=== PATIENT | male | born 1955 | race African-American/Black ===

== ENCOUNTER 2016-04-29 08:02 | Emergency (ER) | payer MEDICAID ==
[~2016-04-29] VITALS: Ht 175.3 cm; Wt 87.0 kg
[~2016-04-29 08:02] MED LIST: ALLO300T2 PO; AMLO10TA80 PO; AMLODIPINE; ASA; ASPI-1035 PO; ATOR20TA65 PO; BENA20TA3 PO; BENAZEPRIL; FAMOTIDINE; GLIP10TA10 PO; GLIP10TA72 PO; LISI10TA5; METF850T2 PO; NORVAC; RANI150T7 PO; SIMVASTATIN; TAMS0.4C31 PO; THIAMINE
[2016-04-29] MEDS ORDERED: IBUPROFEN 800MG TABLET PO ONE (09:15)
[2016-04-29 09:20] VITALS: BP 127/80
== END 2016-04-29 09:52 | disposition home or self-care (01) ==
LOC: ER 08:18
DX: M10.9 Gout, unspecified (principal); E11.9 Type 2 diabetes mellitus without complications; I10 Essential (primary) hypertension; E78.00 Pure hypercholesterolemia, unspecified; M19.90 Unspecified osteoarthritis, unspecified site; F12.10 Cannabis abuse, uncomplicated
CPT/HCPCS: 99283

== ENCOUNTER 2016-06-10 10:51 | Emergency (ER) | payer MEDICAID ==
[~2016-06-10] VITALS: Ht 172.7 cm; Wt 89.0 kg
[2016-06-10] MEDS ORDERED: KETOROLAC 30MG/ML VIAL IM ONE (13:00)
[2016-06-10 13:05] VITALS: BP 142/75
== END 2016-06-10 16:06 | disposition home or self-care (01) ==
LOC: ER 14:52
DX: M10.9 Gout, unspecified (principal); M25.571 Pain in right ankle and joints of right foot; I10 Essential (primary) hypertension; E11.9 Type 2 diabetes mellitus without complications; M19.90 Unspecified osteoarthritis, unspecified site; F12.10 Cannabis abuse, uncomplicated
CPT/HCPCS: 96372; 99283; J1885

== ENCOUNTER 2016-09-18 18:55 | Emergency (ER) | payer MEDICAID ==
[~2016-09-18] VITALS: Ht 172.7 cm; Wt 200.0 kg
[~2016-09-18 18:55] MED LIST changes: -ASPI-1035 PO; +ASPI-1159 PO
[2016-09-18 19:35] VITALS: BP 142/81
== END 2016-09-19 01:21 | disposition left against medical advice (07) ==
LOC: ER 09-19 01:21
DX: R51 Headache (principal); Z53.21 Procedure and treatment not carried out due to patient leaving prior to being seen by health care provider

== ENCOUNTER 2016-09-19 09:29 | Emergency (ER) | payer MEDICAID ==
[~2016-09-19] VITALS: Ht 172.7 cm; Wt 91.0 kg
[2016-09-19] MEDS ORDERED: KETOROLAC 60MG/2ML VIAL IM ONE (10:15)
[2016-09-19 10:59] VITALS: BP 122/70
== END 2016-09-19 11:00 | disposition home or self-care (01) ==
LOC: ER 10:22
DX: R51 Headache (principal); I10 Essential (primary) hypertension; E11.9 Type 2 diabetes mellitus without complications; M10.9 Gout, unspecified; Z79.82 Long term (current) use of aspirin
CPT/HCPCS: 96372; 99283; J1885

== ENCOUNTER 2017-09-08 11:53 | Emergency (ER) | payer MEDICAID ==
[~2017-09-08] VITALS: Ht 172.7 cm; Wt 91.0 kg
[~2017-09-08 11:53] MED LIST changes: +GLIP10TA3 PO; -GLIP10TA72 PO
[2017-09-08] MEDS ORDERED: ASPIRIN 81MG TABLET PO ONE (12:30)
[2017-09-08 12:59] LABS: BASOPHILS % 1.3 % (0.0-2.0); EOSINOPHILS % 3.4 % (0.0-5.0); HEMATOCRIT. 45.3 % (42.0-52.0); HEMOGLOBIN. 15.6 g/dL (14.0-18.0); LYMPHOCYTES % 25.5 % (20.0-50.0); MEAN CORPUSCULAR HEMOGLOBIN 32.3 pg (28.0-32.0); MEAN CORPUSCULAR VOLUME 93.8 fL (80.0-94.0); MEAN PLATELET VOLUME 7.9 fl (7.4-10.4); MONOCYTES % 8.2 % (2.0-8.0); NEUTROPHILS % 61.6 % (40.0-76.0); PLATELET 252 x1000/uL (130-400); RED BLOOD CELL COUNT 4.83 mill/uL (4.7-6.1); RED CELL DISTRIBUTION WIDTH 13.2 % (11.6-14.6)
[2017-09-08 13:06] LABS: CHLORIDE 105 mEq/L (98-107)
[2017-09-08 13:07] LABS: INR 1.1; PROTHROMBIN TIME 11.8 sec (9.4-11.6)
[2017-09-08 13:52] VITALS: BP 139/72
== END 2017-09-08 13:52 | disposition home or self-care (01) ==
LOC: ER 11:53
DX: M79.602 Pain in left arm (principal); E11.9 Type 2 diabetes mellitus without complications; I10 Essential (primary) hypertension; F12.10 Cannabis abuse, uncomplicated
CPT/HCPCS: 36415; 71045; 80053; 83880; 84484; 85025; 85610; 93005; 99285

== ENCOUNTER 2018-02-19 09:26 | Emergency (ER) | payer MEDICAID ==
[~2018-02-19] VITALS: Ht 172.7 cm; Wt 88.0 kg
[~2018-02-19 09:26] MED LIST changes: +BENA20TA10 PO; -BENA20TA3 PO; +METF-415 PO; -METF850T2 PO
[2018-02-19] MEDS ORDERED: VITAMIN B1 (09:59)
[2018-02-19] MEDS ORDERED: FISH OIL (09:59)
[2018-02-19] MEDS ORDERED: ACETAMINOPHEN 325MG TABLET PO ONE (12:15)
[2018-02-19 12:21] VITALS: BP 150/75
== END 2018-02-19 12:21 | disposition home or self-care (01) ==
LOC: ER 09:26
DX: S16.1XXA Strain of muscle, fascia and tendon at neck level, initial encounter (principal); E11.9 Type 2 diabetes mellitus without complications; E78.00 Pure hypercholesterolemia, unspecified; I10 Essential (primary) hypertension; F12.10 Cannabis abuse, uncomplicated; F17.200 Nicotine dependence, unspecified, uncomplicated; Z79.899 Other long term (current) drug therapy; X58.XXXA Exposure to other specified factors, initial encounter; Y93.89 Activity, other specified; Y92.89 Other specified places as the place of occurrence of the external cause; Y99.8 Other external cause status
CPT/HCPCS: 99283

== ENCOUNTER 2018-06-19 07:22 | Emergency (ER) | payer MEDICAID ==
[~2018-06-19] VITALS: Ht 170.2 cm; Wt 89.0 kg
[~2018-06-19 07:22] MED LIST changes: -ALLO300T2 PO; +FISH OIL; -NORVAC; -RANI150T7 PO; +VITAMIN B1
[2018-06-19] MEDS ORDERED: GLUCAGON,HUMAN RECOMBINANT 1MG/VIAL IM ONE (08:45)
[2018-06-19 09:54] VITALS: BP 168/90
== END 2018-06-19 09:58 | disposition home or self-care (01) ==
LOC: ER 07:22
DX: R13.10 Dysphagia, unspecified (principal); E11.9 Type 2 diabetes mellitus without complications; I10 Essential (primary) hypertension; F12.10 Cannabis abuse, uncomplicated; Z79.82 Long term (current) use of aspirin; Z79.899 Other long term (current) drug therapy
CPT/HCPCS: 82962; 96372; 99283; J1610; Z7610

== ENCOUNTER 2018-10-06 10:28 | Emergency (ER) | payer MEDICAID ==
[~2018-10-06] VITALS: Ht 175.3 cm; Wt 93.0 kg
[~2018-10-06 10:28] MED LIST changes: -ASPI-1159 PO; +ASPI-1393 PO
[2018-10-06 10:39] VITALS: BP 150/87
== END 2018-10-06 11:11 | disposition home or self-care (01) ==
LOC: ER 10:28
DX: S10.96XA Insect bite of unspecified part of neck, initial encounter (principal); E11.9 Type 2 diabetes mellitus without complications; I10 Essential (primary) hypertension; W57.XXXA Bitten or stung by nonvenomous insect and other nonvenomous arthropods, initial encounter; Y93.9 Activity, unspecified; Y92.9 Unspecified place or not applicable; Z79.82 Long term (current) use of aspirin
CPT/HCPCS: 99282

== ENCOUNTER 2019-08-15 07:34 | Emergency (ER) | payer MEDICAID ==
[~2019-08-15] VITALS: Ht 172.7 cm; Wt 91.0 kg
[~2019-08-15 07:34] MED LIST changes: -ASPI-1393 PO; +ASPI-1497 PO
[2019-08-15 08:30] LABS: BASOPHILS % 0.9 % (0.0-2.0); EOSINOPHILS % 4.9 % (0.0-5.0); HEMATOCRIT. 44.6 % (42.0-52.0); HEMOGLOBIN. 15.7 g/dL (14.0-18.0); LYMPHOCYTES % 25.8 % (20.0-50.0); MEAN CORPUSCULAR VOLUME 93.5 fL (80.0-94.0); MEAN PLATELET VOLUME 7.9 fl (7.4-10.4); MONOCYTES % 8.2 % (2.0-8.0); NEUTROPHILS % 60.2 % (40.0-76.0); PLATELET 299 x1000/uL (130-400); RED BLOOD CELL COUNT 4.77 mill/uL (4.7-6.1); RED CELL DISTRIBUTION WIDTH 13.2 % (11.6-14.6)
[2019-08-15 08:31] LABS: CHLORIDE 107 mEq/L (98-107)
[2019-08-15 08:37] LABS: CLARITY URINE CLEAR (CLEAR); COLOR URINE YELLOW (YELLOW); KETONES URINE NEGATIVE (NEGATIVE); LEUKOCYTE ESTERASE URINE NEGATIVE (NEGATIVE); NITRITE URINE NEGATIVE (NEGATIVE); OCCULT BLOOD URINE NEGATIVE (NEGATIVE); PH URINE 5.5 (4.5-8.0); PROTEIN URINE NEGATIVE (NEGATIVE); SPECIFIC GRAVITY URINE 1.016 (1.005-1.030); UROBILINOGEN URINE 0.2 E.U./dL (0.2-1.0)
[2019-08-15 09:00] LABS: INR 1.1; PROTHROMBIN TIME 11.1 sec (9.6-11.0)
[2019-08-15] MEDS ORDERED: KETOROLAC 30MG/ML VIAL IV ONE (09:45)
[2019-08-15 10:00] VITALS: BP 131/75
== END 2019-08-15 11:15 | disposition home or self-care (01) ==
LOC: ER 07:34
DX: K57.32 Diverticulitis of large intestine without perforation or abscess without bleeding (principal); E11.65 Type 2 diabetes mellitus with hyperglycemia; I10 Essential (primary) hypertension; E78.00 Pure hypercholesterolemia, unspecified; F12.10 Cannabis abuse, uncomplicated; Z79.84 Long term (current) use of oral hypoglycemic drugs
CPT/HCPCS: 36415; 74176; 80053; 81003; 82962; 83690; 85025; 85610; 96374; 99284; J1885

== ENCOUNTER 2020-03-04 12:16 | Emergency (ER) | payer MEDICAID ==
[~2020-03-04] VITALS: Ht 175.3 cm; Wt 96.0 kg
[2020-03-04] MEDS ORDERED: ONDANSETRON HCL 4MG/2ML INJ IV STA (14:36)
[2020-03-04] MEDS ORDERED: KETOROLAC 30MG/ML VIAL IV STA (14:36)
[2020-03-04 14:39] LABS: CLARITY URINE CLEAR (CLEAR); COLOR URINE YELLOW (YELLOW); KETONES URINE NEGATIVE (NEGATIVE); LEUKOCYTE ESTERASE URINE NEGATIVE (NEGATIVE); NITRITE URINE NEGATIVE (NEGATIVE); OCCULT BLOOD URINE NEGATIVE (NEGATIVE); PH URINE 5.5 (4.5-8.0); PROTEIN URINE NEGATIVE (NEGATIVE); SPECIFIC GRAVITY URINE 1.016 (1.005-1.030); UROBILINOGEN URINE 0.2 E.U./dL (0.2-1.0)
[2020-03-04] MEDS ORDERED: SODIUM CHLORIDE 0.9% 1,000 ML IV ONE (14:45)
[2020-03-04 15:56] LABS: BASOPHILS % 0.6 % (0.0-2.0); EOSINOPHILS % 0.4 % (0.0-5.0); HEMATOCRIT. 47.6 % (42.0-52.0); HEMOGLOBIN. 16.2 g/dL (14.0-18.0); LYMPHOCYTES % 12.3 % (20.0-50.0); MEAN CORPUSCULAR VOLUME 91.2 fL (80.0-94.0); MEAN PLATELET VOLUME 8.4 fl (7.4-10.4); MONOCYTES % 7.9 % (2.0-8.0); NEUTROPHILS % 78.8 % (40.0-76.0); PLATELET 266 x1000/uL (130-400); RED BLOOD CELL COUNT 5.22 mill/uL (4.7-6.1); RED CELL DISTRIBUTION WIDTH 13.1 % (11.6-14.6)
[2020-03-04 15:59] LABS: CHLORIDE 102 mEq/L (98-107)
[2020-03-04 16:04] LABS: PARTIAL THROMBOPLASTIN TIME 27.1 sec (23.4-31.0); PROTHROMBIN TIME 10.9 sec (9.6-11.0)
[2020-03-04 18:30] VITALS: BP 143/79
== END 2020-03-04 18:35 | disposition home or self-care (01) ==
LOC: ER 12:16
DX: K57.92 Diverticulitis of intestine, part unspecified, without perforation or abscess without bleeding (principal); N20.0 Calculus of kidney; E11.9 Type 2 diabetes mellitus without complications; E78.00 Pure hypercholesterolemia, unspecified; I10 Essential (primary) hypertension; F12.10 Cannabis abuse, uncomplicated; Z79.899 Other long term (current) drug therapy
CPT/HCPCS: 36415; 71045; 74176; 80053; 81003; 83690; 85025; 85610; 85730; 86850; 86900; 86901; 93005; 96361; 96374; 96375; 99285; J1885; J2405; J7030

== ENCOUNTER 2020-04-17 12:36 | Emergency (ER) | payer MEDICAID ==
[~2020-04-17] VITALS: Ht 172.7 cm; Wt 90.2 kg
[~2020-04-17 12:36] MED LIST changes: +LISI10TA26; -LISI10TA5
[2020-04-17] MEDS ORDERED: ACYC200C PO (16:33)
[2020-04-17 16:57] VITALS: BP 142/77
== END 2020-04-17 16:58 | disposition home or self-care (01) ==
LOC: ER 12:36
DX: B00.9 Herpesviral infection, unspecified (principal); E11.9 Type 2 diabetes mellitus without complications; E78.00 Pure hypercholesterolemia, unspecified; I10 Essential (primary) hypertension; F12.10 Cannabis abuse, uncomplicated; Z79.899 Other long term (current) drug therapy
CPT/HCPCS: 99281; Z7610

== ENCOUNTER 2022-03-19 06:27 | Emergency (ER) | payer MEDICAID ==
[~2022-03-19] VITALS: Ht 172.7 cm; Wt 92.2 kg
[~2022-03-19 06:27] MED LIST changes: +ACYC200C31 PO; +BENA-8 PO; -BENA20TA10 PO
[2022-03-19] MEDS ORDERED: VISCOUS LIDOCAINE 2% 15 ML UDC PO STA (07:47)
[2022-03-19] MEDS ORDERED: DICYCLOMINE 10 MG/5 ML ORAL SYR PO STA (07:47)
[2022-03-19] MEDS ORDERED: MAGNESIUM/ALUMINUM HYDROXIDE/SIMETHICONE 30ML UDC PO STA (07:47)
[2022-03-19] MEDS ORDERED: KETOROLAC 30MG/ML VIAL IV STA (07:47)
[2022-03-19 08:51] LABS: HEMATOCRIT. 47.8 % (42.0-52.0); HEMOGLOBIN. 16.3 g/dL (14.0-18.0); MEAN CORPUSCULAR VOLUME 93.8 fL (80.0-94.0); MEAN PLATELET VOLUME 7.5 fl (7.4-10.4); PLATELET 251 x1000/uL (130-400); RED CELL DISTRIBUTION WIDTH 13.4 % (11.6-14.6)
[2022-03-19 08:52] LABS: CHLORIDE 100 mEq/L (98-107)
[2022-03-19 08:57] LABS: PROTHROMBIN TIME 11.1 sec (9.6-11.0)
[2022-03-19 09:57] LABS: PLATELET ESTIMATE NORMAL
[2022-03-19 10:10] VITALS: BP 115/58
[2022-03-19] MEDS ORDERED: ONDA4TAB50 PO (10:27)
== END 2022-03-19 10:58 | disposition home or self-care (01) ==
LOC: ER 06:27
DX: R10.9 Unspecified abdominal pain (principal); E11.9 Type 2 diabetes mellitus without complications; I10 Essential (primary) hypertension; E78.00 Pure hypercholesterolemia, unspecified; Z79.82 Long term (current) use of aspirin
CPT/HCPCS: 36415; 74176; 80053; 83690; 85025; 85610; 93005; 96374; 99285; J1885; Z7610

== ENCOUNTER 2023-03-15 10:24 | Emergency (ER) | payer MEDICAID ==
[~2023-03-15] VITALS: Ht 177.8 cm; Wt 81.0 kg
[~2023-03-15 10:24] MED LIST changes: +ONDA4TAB50 PO
[2023-03-15 10:33] VITALS: O2SAT 98
[2023-03-15] MEDS ORDERED: HYDROCODONE/ACETAMINOPHEN 5/325MG TABLET PO STA (10:44)
[2023-03-15 10:55] LABS: BASOPHILS % 0.5 % (0.0-2.0); EOSINOPHILS % 2.1 % (0.0-5.0); HEMATOCRIT. 44.1 % (42.0-52.0); LYMPHOCYTES % 16.3 % (20.0-50.0); MEAN CORPUSCULAR HEMOGLOBIN 32.3 pg (28.0-32.0); MEAN CORPUSCULAR VOLUME 94.8 fL (80.0-94.0); MEAN PLATELET VOLUME 7.5 fl (7.4-10.4); MONOCYTES % 10.7 % (2.0-8.0); NEUTROPHILS % 70.4 % (40.0-76.0); PLATELET 268 x1000/uL (130-400); RED BLOOD CELL COUNT 4.65 mill/uL (4.7-6.1)
[2023-03-15 11:28] LABS: ALANINE AMINOTRANSFERASE 16 IU/L (10-49); ALBUMIN 4.5 g/dL (3.2-4.8); ASPARTATE AMINOTRANSFERASE 26 IU/L (<34); BILIRUBIN TOTAL 0.8 mg/dL (0.1-1.0); CALCIUM 9.5 mg/dL (8.7-10.4); CARBON DIOXIDE 23 mEq/L (21-32); CHLORIDE 97 mEq/L (98-107); CREATININE 0.9 mg/dL (0.6-1.3); GLUCOSE 207 mg/dL (70-105); POTASSIUM 3.6 mEq/L (3.5-5.1); PROTEIN TOTAL 7.7 g/dL (6.0-8.3); SODIUM 128 mEq/L (136-145); UREA NITROGEN BLOOD 6 mg/dL (9-23)
[2023-03-15] MEDS ORDERED: IBUP-2028 MT (12:01)
[2023-03-15 12:10] LABS: CLARITY URINE CLEAR (CLEAR); COLOR URINE YELLOW (YELLOW); GLUCOSE URINE 1+ (NEGATIVE); KETONES URINE NEGATIVE (NEGATIVE); LEUKOCYTE ESTERASE URINE NEGATIVE (NEGATIVE); NITRITE URINE NEGATIVE (NEGATIVE); OCCULT BLOOD URINE NEGATIVE (NEGATIVE); PH URINE 5.5 (4.5-8.0); PROTEIN URINE NEGATIVE (NEGATIVE); SPECIFIC GRAVITY URINE 1.008 (1.005-1.030); UROBILINOGEN URINE 0.2 E.U./dL (0.2-1.0)
[2023-03-15] MEDS ORDERED: HYDROCODONE/ACETAMINOPHEN 5/325MG TABLET PO NR (12:15)
[2023-03-15 12:44] VITALS: BP 152/66; PULSE 96; RESP 20; TEMP 98.8
[2023-03-15 12:52] LABS: SQUAMOUS EPITHELIAL CELL URINE RARE /lpf (RARE/1+)
[2023-03-15 12:53] LABS: BACTERIA URINE NONE SEEN; RBC URINE NONE SEEN /hpf (0-2); WBC URINE 0-2 /hpf (0-2)
== END 2023-03-15 12:45 | disposition home or self-care (01) ==
LOC: ER 10:24
DX: R05.9 Cough, unspecified (principal); E87.1 Hypo-osmolality and hyponatremia; F10.10 Alcohol abuse, uncomplicated; E13.65 Other specified diabetes mellitus with hyperglycemia; M19.90 Unspecified osteoarthritis, unspecified site; E78.00 Pure hypercholesterolemia, unspecified; F12.90 Cannabis use, unspecified, uncomplicated; M10.9 Gout, unspecified; Z79.899 Other long term (current) drug therapy
CPT/HCPCS: 80053; 81003; 83690; 85025; 36415; 71045; 74176; 99284; Z7610